=== PATIENT | male | born 1965 | race Two or more races ===

== ENCOUNTER → 2024-12-19 | Day surgery (SDC) | payer OTHER ==
[2024-12-17 08:04] LABS: Hematocrit 47.6 % (41.0-53.0); Hemoglobin 16.6 g/dL (13.5-17.5); Mean Corpuscular Hemoglobin 32.6 pg (28.0-32.0); Mean Corpuscular Volume 93.6 fL (80.0-100.0); Nucleated Red Blood Cells % 0.1 %
[2024-12-17 08:09] LABS: Urine Protein, UAD Negative (Negative)
[2024-12-17 08:16] LABS: INR 0.92 (0.9-1.15); Partial Thromboplastin Time 32.8 SEC (24.5-34.5); Prothrombin Time 9.8 sec (9.3-11.8)
[2024-12-17 08:35] LABS: Alanine Aminotransferase 24 U/L (7-40); Albumin 4.4 g/dL (3.2-4.8); Alkaline Phosphatase 95 U/L (46-116); Anion Gap 9 (5-15); BUN/Creatinine Ratio 17.5 (10.0-20.0); Bilirubin, Total 0.4 mg/dL (0.2-1.0); Blood Urea Nitrogen 18 mg/dL (9-23); Calcium 9.5 mg/dL (8.7-10.4); Carbon Dioxide 28 mmol/L (20-31); Chloride 104 mmol/L (98-107); Glucose 95 mg/dL (74-106); Potassium 4.2 mmol/L (3.5-5.1); Sodium 141 mmol/L (136-145); Total Protein 6.6 g/dL (5.7-8.2)
[~2024-12-19] VITALS: Ht 180.3 cm; Wt 127.0 kg
[~2024-12-19] MED LIST: ACE3T PO; ACETAMINOPHEN IV 1000 MG/100ML (10MG/ML) IV ONE; ASCO500T11 PO; CHOL1TAB28 PO; COEN200C9 PO; GLUC1CAP12 PO; GLYCOPYRROLATE 0.2 MG/ML 1ML VIAL ONE; HYDROmorphone HCL 2 MG/ML VL/or syr IV PRN; HYDROmorphone HCL 2 MG/ML VL/or syr ONE; KETAMINE 50mg/ML 1ml syringe IV ONE; KETOROLAC TROMETH 30 MG/ML 1ML VIAL ONE; LIDOCAINE 2% (LOCAL ANESTH.) PF 5ml SDV ONE; MAGN400T40 OR; MIDAZOLAM HCL 2MG/2ML 2ml VIAL (1mg/ml) ONE; MISC1TAB PO; MISC500C8 PO; ONDANSETRON HCL 4 MG/2 ML VIAL IV ONE; ONDANSETRON HCL 4 MG/2 ML VIAL ONE; PROPOFOL 10 MG/ML 20 ML IV ONE; REDPOW2 XX; ROCURONIUM 10MG/ML 10ML VIAL IV ONE; SUGAMMADEX 200mg/2ml Vial (100MG/ML) IV ONE; ceFAZolin 1GM VL ONE; fentaNYL CITRATE 100 MCG/2 ML VL ONE
[2024-12-19] MEDS: ceFAZolin 2 GM/D5W50ml 50 ML IV ONE (09:50)
[2024-12-19] MEDS: BUPIVACAINE 0.5% P/F INJ 10 ML VIAL ONE (10:09)
[2024-12-19] MEDS: LIDOCAINE W/ EPINEPHRINE 1% 20ML VIAL ONE (10:09)
--- NOTE | 2024-12-19 10:58 | DVHOP ---
DATE OF SURGERY: 12/19/2024 PREOPERATIVE DIAGNOSIS: Left inguinal hernia. POSTOPERATIVE DIAGNOSIS: Left inguinal hernia. SURGEON: Federico Vela MD ONBOARDING SPECIALIST: Binh Tsang NP ANESTHESIA: General endotracheal. ANESTHESIOLOGIST: Dr. Gutiérrez. PROCEDURE: Repair of left inguinal hernia. DESCRIPTION OF PROCEDURE: Under general endotracheal anesthesia with the patient's skin prepped and draped and infiltrated with 0.25% Marcaine with epinephrine into the proposed incision site, the patient's left groin was incised over the visible palpable bulge in the groin. The subcutaneous tissue, which was quite abundant, was divided with electrocautery on to the fibers of the external oblique aponeurosis. The ilioinguinal nerve was identified, retracted laterally and protected. The patient's cord structures including an indirect hernia sac were encircled with a Soto drain and retracted laterally. The ilioinguinal nerve was swept out of harm's way. The patient's hernia sac was identified in its usual anteromedial aspect on the cord structures. It was from cremasteric fibers, opened digitally, explored. Omentum within the hernia sac was reduced back into the peritoneal cavity. The patient's hernia sac was swept clean of surrounding tissues and then twisted on itself, ligated high in the internal inguinal ring doubly with a nonabsorbable suture. The excess peritoneum was excised and submitted for histopathologic examination. Subsequently, the floor of the hernia was repaired using #1 nonabsorbable sutures through the conjoint tendon and reflecting part of Poupart's ligament. The repair was carried out to accommodate the cord structures and a fingertip comfortably so as not to constrict the vessels to the testicle. The wound was then irrigated. Irrigant was aspirated. Hemostasis was meticulously accomplished and found to be complete. Testicle returned to its normal anatomical position. The wound was approximated using Monocryl sutures, Dermabond glue and Steri-Strips. The patient remained stable throughout the procedure. He left the operating room following an accurate needle and sponge count. His , Mdaai, was thoroughly informed at [phone]. Federico Vela MD PF/SHAUN TID: [id number] RECEIPT: [id number]
[2024-12-19 11:50] VITALS: BP 128/80; PULSE 71; RESP 12; O2SAT 97
== END | disposition home or self-care (01) ==
LOC: SUR 06:59
PROVIDERS: ATTEND Surgery
DX: K40.90 Unilateral inguinal hernia, without obstruction or gangrene, not specified as recurrent (principal); I10 Essential (primary) hypertension; Z87.891 Personal history of nicotine dependence; Z79.899 Other long term (current) drug therapy
CPT/HCPCS: 36415; 49505; 80053; 81001; 85025; 85610; 85730; 86850; 86900; 86901; 88302; J0690; J1100; J1171; J1885; J2003; J2250; J2405; J2704; J3010; J3490